=== PATIENT | male | born 1955 | race Caucasian/White ===

== ENCOUNTER 2017-01-31 11:01 | Emergency (ER) | payer MEDICARE, BC ==
[~2017-01-31 11:01] MED LIST: ASPI325T4 PO; CEFD300C37 PO; HYDR-3138 PO; IBUP-1222 PO; ONDA4TAB10 PO; SITA25TA PO
[2017-02-03 15:54] LABS: BLOOD UREA NITROGEN 30 mg/dL (7-18); IS PT STATUS REG ER OR PRE ER? YES
[2017-02-04 10:23] LABS: DIFF TOTAL CELLS COUNTED 100 CELL DIFF
[2017-02-04 10:27] LABS: VERIFY COUNTS? YES
[2017-02-04 10:28] LABS: ANISOCYTOSIS 1+; POLYCHROMASIA 1+
== END 2017-01-31 16:00 | disposition home or self-care (01) ==
LOC: ED 11:01
DX: J20.9 Acute bronchitis, unspecified (principal); B96.89 Other specified bacterial agents as the cause of diseases classified elsewhere; I10 Essential (primary) hypertension; E11.9 Type 2 diabetes mellitus without complications; Z85.53 Personal history of malignant neoplasm of renal pelvis
CPT/HCPCS: 36415; 74022; 80048; 81003; 82040; 83880; 84484; 85025; 85379; 87086; 93970; 99285

== ENCOUNTER 2017-02-25 13:01 | Inpatient (IN) | payer MEDICARE, BC ==
[2017-02-25] VITALS (7 sets, daily range): BP systolic 104–137; BP diastolic 58–115
[~2017-02-25] VITALS: Ht 182.9 cm; Wt 141.8 kg
[2017-02-25] MEDS ORDERED: SODIUM CHLORIDE 0.9% 1,000ML IVBOLUS ONE (14:00)
[2017-02-25 14:23] LABS: BLOOD UREA NITROGEN 23 mg/dL (7-18)
[2017-02-25 14:26] LABS: ASPARTATE AMINO TRANSFERASE 6 U/L (15-37)
[2017-02-25 14:42] LABS: DIFF TOTAL CELLS COUNTED 100 CELL DIFF
[2017-02-25 15:07] LABS: ANISOCYTOSIS 1+; POLYCHROMASIA 1+; VERIFY COUNTS? YES
[2017-02-25 15:08] LABS: MICROCYTOSIS 1+
[2017-02-25] MEDS ORDERED: ALBUTEROL/IPRATROPIUM 2.5MG/0.5MG, 3 ML IPPB PRN (16:30)
[2017-02-25] MEDS ORDERED: PHARMACY MAY ADJ FOR RENAL FX MC PRN (16:30)
[2017-02-25] MEDS ORDERED: ATOR40TA78 PO (16:36)
[2017-02-25] MEDS ORDERED: LOSA25TA5 PO (16:36)
[2017-02-25] MEDS ORDERED: CHOL20002 PO (16:36)
[2017-02-25] MEDS ORDERED: ASPI-515 PO (16:36)
[2017-02-25 17:55] LABS: PATH.CAST-FLAG NOT PRESENT; SPERM-FLAG NOT PRESENT; SRC-FLAG NOT PRESENT; XTAL-FLAG NOT PRESENT; YLC-FLAG NOT PRESENT
[2017-02-25] MEDS ORDERED: DIPHENHYDRAMINE 50 MG CAPSULE PO PRN (21:00)
[2017-02-25] MEDS ORDERED: ATORVASTATIN 40 MG TABLET PO SCH (21:00)
[2017-02-26 00:18] VITALS: BP 100/50
[2017-02-26 01:39] VITALS: BP 105/59
[2017-02-26 07:09] VITALS: BP 115/65
[2017-02-26] MEDS ORDERED: CYANOCOBALAMIN 1,000 MCG/ML, 1ML IM ONE (08:00)
[2017-02-26 08:22] LABS: BLOOD UREA NITROGEN 23 mg/dL (7-18)
[2017-02-26] MEDS ORDERED: ALBUTEROL/IPRATROPIUM 2.5MG/0.5MG, 3 ML IPPB PRN (09:00)
[2017-02-26] MEDS ORDERED: CHOLECALCIFEROL 1,000 UNIT TABLET PO SCH (09:00)
[2017-02-26] MEDS ORDERED: ASPIRIN 81 MG TABLET EC PO SCH (09:00)
[2017-02-26] MEDS ORDERED: FOLIC ACID 1 MG TABLET PO SCH (09:00)
[2017-02-26] MEDS ORDERED: SITAGLIPTIN 25MG TABLET PO SCH (09:00)
[2017-02-26] MEDS ORDERED: LOSARTAN 25MG TABLET PO SCH ×3 (09:00)
[2017-02-26 09:51] LABS: DIFF TOTAL CELLS COUNTED 100 CELL DIFF
[2017-02-26 10:18] LABS: ANISOCYTOSIS 1+; POLYCHROMASIA 1+; VERIFY COUNTS? YES
== END 2017-02-26 10:30 | disposition left against medical advice (07) | DRG 435 ==
LOC: ED 15:49 → 3NW 15:51 → ED 16:10 → 3NW 17:55
PROVIDERS: ADMIT Hospitalist; ATTEND Hospitalist
PROC: 30233N1 Transfusion of Nonautologous Red Blood Cells into Peripheral Vein, Percutaneous Approach (ICD-10-PCS; principal; 2017-02-25)
DX: C78.7 Secondary malignant neoplasm of liver and intrahepatic bile duct (principal); E43 Unspecified severe protein-calorie malnutrition; N17.9 Acute kidney failure, unspecified; I13.0 Hypertensive heart and chronic kidney disease with heart failure and stage 1 through stage 4 chronic kidney disease, or unspecified chronic kidney disease; I50.30 Unspecified diastolic (congestive) heart failure; Z68.41 Body mass index [BMI] 40.0-44.9, adult; D64.9 Anemia, unspecified; E11.22 Type 2 diabetes mellitus with diabetic chronic kidney disease; D72.819 Decreased white blood cell count, unspecified; K76.9 Liver disease, unspecified; E11.65 Type 2 diabetes mellitus with hyperglycemia; N18.9 Chronic kidney disease, unspecified; N20.0 Calculus of kidney; Z96.643 Presence of artificial hip joint, bilateral; Z79.899 Other long term (current) drug therapy; Z79.82 Long term (current) use of aspirin; Z88.5 Allergy status to narcotic agent; Z82.49 Family history of ischemic heart disease and other diseases of the circulatory system; Z85.528 Personal history of other malignant neoplasm of kidney; Z86.711 Personal history of pulmonary embolism; Z90.5 Acquired absence of kidney; Z90.49 Acquired absence of other specified parts of digestive tract; Z83.3 Family history of diabetes mellitus
CPT/HCPCS: 36415; 71010; 74176; 76770; 80048; 80053; 81001; 82040; 82570; 82607; 82728; 82746; 83010; 83540; 83550; 83615; 83735; 84100; 84300; 84439; 84443; 85014; 85018; 85025; 85045; 85379; 85610; 85730; 86850; 86900; 86923; 87040; 93005; 93970; 99285; P9016